=== PATIENT | female | born 1990 | race African-American/Black ===

== ENCOUNTER 2016-11-26 10:47 | Emergency (ER) | payer OTHER ==
[~2016-11-26] VITALS: Ht 180.3 cm; Wt 89.8 kg
[2016-11-26 11:32] LABS: APPEARANCE,URINE Cloudy (CLEAR); BILIRUBIN,URINE Negative (NEGATIVE); BLOOD, URINE Large Ery/uL (NEGATIVE); COLOR,URINE Yellow (YELLOW); KETONES,URINE Negative (NEGATIVE); LEUKOCYTE ESTERASE ,URINE Small (NEGATIVE); NITRITE, URINE Negative (NEGATIVE); PROTEIN,URINE Negative (NEGATIVE); UGLUCOSE Negative (NEGATIVE); UROBILINOGEN,URINE 0.2 EU/dL (0.2)
[2016-11-26 11:33] LABS: BASOPHILS # (AUTO) 0.1 /CMM (0.0-0.2); BASOPHILS % (AUTO) 1.7 % (0.0-2.0); EOSINOPHILS # (AUTO) 0.1 /CMM (0.0-0.7); EOSINOPHILS % (AUTO) 1.2 % (0.0-6.0); HEMATOCRIT 40 % (33-45); HEMOGLOBIN 13.7 g/dL (11.5-14.8); LYMPHOCYTES # (AUTO) 1.7 /CMM (0.8-4.8); LYMPHOCYTES % (AUTO) 28.4 % (20.0-44.0); MEAN CORPUSCULAR HEMOGLOBIN 30 PG (26.0-33.0); MEAN CORPUSCULAR HGB CONC 34 g/dl (31.0-36.0); MEAN CORPUSCULAR VOLUME 89 fL (82-100); MONOCYTES # (AUTO) 0.5 /CMM (0.1-1.30); MONOCYTES % (AUTO) 9.1 % (2.0-12.0); NEUTROPHILS # (AUTO) 3.4 /CMM (1.8-8.9); NEUTROPHILS % (AUTO) 59.6 % (43.0-81.0); PLATELET COUNT (AUTO) 175 /CMM (150-450); RDW COEFFICIENT OF VARIATION 12.6 (11.5-15.0); RED BLOOD CELL COUNT(AUTO) 4.54 MIL/uL (4.0-5.2); WHITE BLOOD COUNT (AUTO) 5.8 K/uL (4.3-11.0)
[2016-11-26 11:36] LABS: PREGNANCY TEST URINE QUAL NEGATIVE (NEGATIVE)
[2016-11-26 11:40] LABS: CALCIUM, SERUM 8.8 mg/dL (8.5-10.1); CREATININE 0.9 mg/dL (0.6-1.3); POTASSIUM 3.9 mmol/L (3.5-5.1)
[2016-11-26 11:46] LABS: ALBUMIN 3.7 g/dL (3.4-5.0); BILIRUBIN,DIRECT 0.2 mg/dL (0.0-0.2)
--- NOTE | 2016-11-26 12:00 | NUR ---
BIB SELF FOR VAG BLEED X 1 MONTH, NOT BLEEDING TODAY, ABLE TO AMBULATE TO BED, PLACED ON MONITOR, NO OTHER COMPLAINTS, MD AT BEDSIDE, WILL CONTINUE TO MONITOR CLOSELY.
[2016-11-26 12:28] LABS: BACTERIA,URINE Few /HPF (None Seen)
[2016-11-26 12:29] LABS: ADD URINE CULTURE YES; SQUAMOUS EPITHELIAL CELL,UR Many /HPF (None Seen)
--- NOTE | 2016-11-26 13:12 | NUR ---
Patient discharged to home in stable condition. Written and verbal after care instructions given. Patient verbalizes understanding of instruction.
[2016-11-26 13:13] VITALS: BP 132/82
== END 2016-11-26 13:14 | disposition home or self-care (01) ==
LOC: ER 10:49
DX: N93.9 Abnormal uterine and vaginal bleeding, unspecified (principal); N39.0 Urinary tract infection, site not specified; Z87.01 Personal history of pneumonia (recurrent); Z88.0 Allergy status to penicillin; F17.210 Nicotine dependence, cigarettes, uncomplicated
CPT/HCPCS: 36415; 76856; 80048; 80076; 81001; 83690; 84703; 85025; 86850; 87077; 87086; 99285; A4606; Z7610; 81000-TC